=== PATIENT | male | born 1985 | race Caucasian/White ===

== ENCOUNTER 2016-07-31 13:09 | Emergency (ER) | payer SELFPAY ==
[~2016-07-31] VITALS: Ht 182.9 cm; Wt 97.7 kg
[2016-07-31 13:53] VITALS: BP 134/84
[2016-07-31] MEDS ORDERED: MIRT30 PO (14:07)
[2016-07-31] MEDS ORDERED: QUET25TA PO (14:07)
== END 2016-07-31 15:34 | disposition home or self-care (01) ==
LOC: EMS 13:13
DX: M79.662 Pain in left lower leg (principal); Z86.718 Personal history of other venous thrombosis and embolism; Z91.030 Bee allergy status; Z91.041 Radiographic dye allergy status
CPT/HCPCS: 99281